=== PATIENT | female | born 1985 | race Caucasian/White ===

== ENCOUNTER → 2018-09-08 08:57 | Outpatient (CLI) | payer OTHER, SELFPAY ==
[2018-08-28 09:06] VITALS: BMI 24.3
[2018-09-08 10:24] LABS: Ferritin 85 ng/mL (8-252); Iron Binding Capacity,Total 330 ug/dL (250-450)
[2018-09-09 12:16] LABS: Transferrin 258 mg/dL (200-370)
== END ==
PROVIDERS: Nurse Practitioner Women's Health; Referring Provider Obstetrics & Gynecology; Visit Provider Obstetrics & Gynecology
DX: D56.3 Thalassemia minor (principal)
CPT/HCPCS: 36415; 82728; 83550; 84466; 87086; 87088

== ENCOUNTER → 2018-09-30 08:51 | Outpatient (CLI) | payer OTHER, SELFPAY ==
[2018-09-30 08:37] VITALS: BMI 24.3
== END ==
PROVIDERS: Referring Provider Obstetrics & Gynecology; Visit Provider Obstetrics & Gynecology
DX: Z36.9 Encounter for antenatal screening, unspecified (principal)
CPT/HCPCS: 36415

== ENCOUNTER → 2018-12-14 15:31 | Outpatient (CLI) | payer OTHER, SELFPAY ==
[2018-12-14 14:53] VITALS: BMI 27.4
[2018-12-14 16:18] LABS: Absolute Lymphocyte Count 1.56 X10^3/uL (0.83-4.51); Basophil# 0.02 X10^3/uL; Basophil% 0.2 % (0-1); Eosinophil# 0.26 X10^3/uL; Eosinophils% 2.5 % (0-5); Hematocrit 29.5 % (37-47); Hemoglobin 9.1 g/dL (12.0-15.0); Lymphocyte # 1.56 X10^3/ul (4.0); Lymphocyte % 15.1 % (19-41); Mean Corp Hgb Conc 30.8 g/dL (32-36); Mean Corpuscular Hgb 20.3 pg (27.0-32.0); Mean Corpuscular Volume 65.7 fL (81-99); Mean Platelet Vol. 10.1 fl (6.2-12.0); Monocyte# 0.46 X10^3/uL; Monocyte% 4.4 % (0-10); NRBC Flagged by Analyzer 0.2 % (0-5); Neutrophil # 7.97 X10^3/uL (2.7-7.7); Neutrophil % 76.9 % (47-70); Platelet Count 262 K/mm3 (150-450); RBC Distribution Width CV 14.4 % (11.6-14.6); RBC Distribution Width SD 33.3 fl (35.1-43.9); Red Blood Count 4.49 M/mm3 (4.2-5.4); White Blood Count 10.4 K/mm3 (4.4-11.0)
[2018-12-14 16:38] LABS: Glucose Challenge Gest 1H 50g 84 mg/dL (70-140)
== END ==
PROVIDERS: Referring Provider Obstetrics & Gynecology; Visit Provider Obstetrics & Gynecology
DX: Z34.92 Encounter for supervision of normal pregnancy, unspecified, second trimester (principal); Z3A.27 27 weeks gestation of pregnancy
CPT/HCPCS: 36415; 82950; 85025

== ENCOUNTER → 2018-12-18 12:33 | Outpatient (CLI) | payer OTHER, SELFPAY ==
[2018-12-14 14:53] VITALS: BMI 27.4
[2018-12-18 14:19] LABS: Ferritin 32 ng/mL (8-252); Iron Binding Capacity,Total 428 ug/dL (250-450)
[2018-12-21 13:06] LABS: Transferrin 331 mg/dL (200-370)
== END ==
PROVIDERS: Referring Provider Obstetrics & Gynecology; Visit Provider Obstetrics & Gynecology
DX: O99.019 Anemia complicating pregnancy, unspecified trimester (principal)
CPT/HCPCS: 36415; 82728; 83550; 84466

== ENCOUNTER 2019-01-02 16:55 | Outpatient (CLI) | payer OTHER, SELFPAY ==
[2018-12-14 14:53] VITALS: BMI 27.4
[2019-01-02 17:05] VITALS: BMI 26.9
[2019-01-02 17:29] LABS: ROM Internal Control Test YES-OK TO RESULT pt. (Internal QC); ROM Patient Test POSITIVE (Negative)
[2019-01-02] MEDS: Lactated Ringers 1,000 ML 15 ML IV (17:54)
[2019-01-02 17:59] LABS: Absolute Lymphocyte Count 1.92 X10^3/uL (0.83-4.51); Absolute Neutrophil Count 7.7 X10^3/uL (2.0-7.7); Basophil# 0.03 X10^3/uL; Basophil% 0.3 % (0-1); Eosinophil# 0.32 X10^3/uL; Hematocrit 30.8 % (37-47); Hemoglobin 9.6 g/dL (12.0-15.0); Lymphocyte # 1.92 X10^3/ul (4.0); Lymphocyte % 17.9 % (19-41); Mean Corp Hgb Conc 31.2 g/dL (32-36); Mean Corpuscular Hgb 20.2 pg (27.0-32.0); Mean Corpuscular Volume 64.7 fL (81-99); Mean Platelet Vol. 10.2 fl (6.2-12.0); Monocyte# 0.66 X10^3/uL; Monocyte% 6.2 % (0-10); NRBC Flagged by Analyzer 0 % (0-5); Neutrophil # 7.72 X10^3/uL (2.7-7.7); Platelet Count 267 K/mm3 (150-450); RBC Distribution Width CV 14.2 % (11.6-14.6); RBC Distribution Width SD 31.9 fl (35.1-43.9); Red Blood Count 4.76 M/mm3 (4.2-5.4); White Blood Count 10.7 K/mm3 (4.4-11.0)
[2019-01-02] MEDS: Betamethasone/Betamethasone 30 MG/5 ML Vial 12 MG IM (18:07)
[2019-01-02 18:15] LABS: Mucous, Urine 0 SEEN /hpf (<or=2+)
[2019-01-02 18:16] LABS: Color, Urine Yellow (Yellow); Glucose, Dipstick Normal (Normal); Ketone-Dipstick Negative (Negative); Leukocyte Esterase-Dipstick Negative /ul (Negative); Nitrite-Dipstick Negative (Negative); Occult Blood-Urine 25 /ul (Negative); Protein-Dipstick 30 mg/dl (Negative); Urine Bilirubin Dipstick Negative (Negative); Urine Clarity Cloudy (Clear); Urine Urobilinogen Normal (Normal); Urine pH 6.5 (5.0 - 8.0)
[2019-01-02] MEDS: Magnesium Sulfate 4gm/100mL 6 GM/150 ML IV.SOLN. IV (18:31)
[2019-01-02 18:35] LABS: Red Blood Cells-Urine 0-5 SEEN /hpf (0-5); Squamous Epithelial Cells - UA 10-25 SEEN /hpf (5-10); White Blood Cells 0-5 SEEN /hpf (0-5)
[2019-01-02 18:36] LABS: Bacteria 2+ /hpf (None Seen)
[2019-01-02 18:44] LABS: Fetal Fibronectin POSITIVE
[2019-01-02] MEDS: Magnesium Sulfate 20 GM/500 ML BAG IV (19:00)
--- NOTE | 2019-01-02 19:15 | NURSING ---
Report given to Estela Elizondo RN at [facility]. Accepting physician is Dr. Rainey.
[2019-01-02 19:20] LABS: Group B Strep DNA By PCR Negative (Negative); Internal Control PASS; Probe Check PASS; Specimen Processing Control PASS
[2019-01-02 19:52] LABS: Chlamydia Trachomatis by PCR Negative (Negative); Neisserai gonorrhoeae by PCR Negative (Negative); Probe Check PASS; Sample Adequacy Control PASS; Specimen Processing Control PASS
--- NOTE | 2019-01-09 00:55 | OB.TRI.PN_ITS ---
Progress Notes Date of Service: 01/02/19 Progress Note: Patient presents for triage evaluation secondary to clear loss of fluid possible PPROM. Patient states that she has had increased discharge throughout the week and it increased significantly today while she was at the childbirth class. ROM plus was sent and it was positive as well as a fibronectin and bedside SUZANNE showed minimal fluid in breech presentation. She denies any contractions FHT: 140 Moderate variability reactive no decelerations category I tracing [place]: no Regular contractions Assessment and plan: P PROM reactive NST, reassuring maternal and status plan transport to tertiary care facility due to early gestational age and prematurity. See problem list details for additional plan information. Laboratory Studies: Laboratory Tests 01/02/19 01/02/19 01/02/19 Range/Units 18:08 18:08 18:05 WBC (4.4-11.0) K/mm3 RBC (4.2-5.4) M/mm3 Hgb (12.0-15.0) g/dL Hct (37-47) % MCV (81-99) fL MCH (27.0-32.0) pg MCHC (32-36) g/dL RDW Std Deviation (35.1-43.9) fl RDW Coeff of Angel (11.6-14.6) % Plt Count (150-450) K/mm3 MPV (6.2-12.0) fl Immature Gran % (Auto) (0.0-0.9) % Neut % (Auto) (47-70) % Lymph % (Auto) (19-41) % [place] % (Auto) (0-10) % Eos % (Auto) (0-5) % Baso % (Auto) (0-1) % Absolute Neuts (auto) (2.0-7.7) X10^3/uL Absolute Lymphs (auto) (0.83-4.51) X10^3/uL Nucleated RBC % (0-5) % Urine Color (Yellow) Urine Clarity (Clear) Urine pH (5.0 - 8.0) Ur Specific [place] (1.002-1.030) Urine Protein (Negative) mg/dl Urine Glucose (UA) (Normal) mg/dl Urine Ketones (Negative) mg/dl Urine Occult Blood (Negative) /ul Urine Nitrite (Negative) Urine Bilirubin (Negative) mg/dL Urine Urobilinogen (Normal) mg/dl Ur Leukocyte Esterase (Negative) /ul Urine RBC (0-5) /hpf Urine WBC (0-5) /hpf Ur Squamous Epith Cells (5-10) /hpf Urine Bacteria (None Seen) /hpf Urine Mucus (<or=2+) /hpf Vag Amniotic Fld Detect (Negative) Chlam trachomat DNA PCR Negative (Negative) N.gonorrhoeae DNA (PCR) Negative (Negative) Group B Strep DNA Negative (Negative) Fibronectin POSITIVE H Specimen Comment Not Reportable Blood Type Antibody Screen 01/02/19 01/02/19 01/02/19 Range/Units 17:53 17:50 17:13 WBC 10.7 (4.4-11.0) K/mm3 RBC 4.76 (4.2-5.4) M/mm3 Hgb 9.6 L (12.0-15.0) g/dL Hct 30.8 L (37-47) % MCV 64.7 L (81-99) fL MCH 20.2 L (27.0-32.0) pg MCHC 31.2 L (32-36) g/dL RDW Std Deviation 31.9 L (35.1-43.9) fl RDW Coeff of Angel 14.2 (11.6-14.6) % Plt Count 267 (150-450) K/mm3 MPV 10.2 (6.2-12.0) fl Immature Gran % (Auto) 0.600 (0.0-0.9) % Neut % (Auto) 72.0 H (47-70) % Lymph % (Auto) 17.9 L (19-41) % [place] % (Auto) 6.2 (0-10) % Eos % (Auto) 3.0 (0-5) % Baso % (Auto) 0.3 (0-1) % Absolute Neuts (auto) 7.7 (2.0-7.7) X10^3/uL Absolute Lymphs (auto) 1.92 (0.83-4.51) X10^3/uL Nucleated RBC % 0 (0-5) % Urine Color (Yellow) Urine Clarity (Clear) Urine pH (5.0 - 8.0) Ur Specific [place] (1.002-1.030) Urine Protein (Negative) mg/dl Urine Glucose (UA) (Normal) mg/dl Urine Ketones (Negative) mg/dl Urine Occult Blood (Negative) /ul Urine Nitrite (Negative) Urine Bilirubin (Negative) mg/dL Urine Urobilinogen (Normal) mg/dl Ur Leukocyte Esterase (Negative) /ul Urine RBC (0-5) /hpf Urine WBC (0-5) /hpf Ur Squamous Epith Cells (5-10) /hpf Urine Bacteria (None Seen) /hpf Urine Mucus (<or=2+) /hpf Vag Amniotic Fld Detect POSITIVE H (Negative) Chlam trachomat DNA PCR (Negative) N.gonorrhoeae DNA (PCR) (Negative) Group B Strep DNA (Negative) Fibronectin Specimen Comment Blood Type O POSITIVE Antibody Screen NEGATIVE 01/02/19 Range/Units 08:05 WBC (4.4-11.0) K/mm3 RBC (4.2-5.4) M/mm3 Hgb (12.0-15.0) g/dL Hct (37-47) % MCV (81-99) fL MCH (27.0-32.0) pg MCHC (32-36) g/dL RDW Std Deviation (35.1-43.9) fl RDW Coeff of Angel (11.6-14.6) % Plt Count (150-450) K/mm3 MPV (6.2-12.0) fl Immature Gran % (Auto) (0.0-0.9) % Neut % (Auto) (47-70) % Lymph % (Auto) (19-41) % [place] % (Auto) (0-10) % Eos % (Auto) (0-5) % Baso % (Auto) (0-1) % Absolute Neuts (auto) (2.0-7.7) X10^3/uL Absolute Lymphs (auto) (0.83-4.51) X10^3/uL Nucleated RBC % (0-5) % Urine Color Yellow (Yellow) Urine Clarity Cloudy (Clear) Urine pH 6.5 (5.0 - 8.0) Ur Specific [place] 1.010 (1.002-1.030) Urine Protein 30 H (Negative) mg/dl Urine Glucose (UA) Normal (Normal) mg/dl Urine Ketones Negative (Negative) mg/dl Urine Occult Blood 25 H (Negative) /ul Urine Nitrite Negative (Negative) Urine Bilirubin Negative (Negative) mg/dL Urine Urobilinogen Normal (Normal) mg/dl Ur Leukocyte Esterase Negative (Negative) /ul Urine RBC 0-5 SEEN (0-5) /hpf Urine WBC 0-5 SEEN (0-5) /hpf Ur Squamous Epith Cells 10-25 SEEN (5-10) /hpf Urine Bacteria 2+ (None Seen) /hpf Urine Mucus 0 SEEN (<or=2+) /hpf Vag Amniotic Fld Detect (Negative) Chlam trachomat DNA PCR (Negative) N.gonorrhoeae DNA (PCR) (Negative) Group B Strep DNA (Negative) Fibronectin Specimen Comment Blood Type Antibody Screen Multi Select Codes - Urinary/Genital Urinary/Genital CPT Codes: 34779-61 non-stress test Interp
== END 2019-01-02 19:10 | disposition short-term general hospital (02) ==
LOC: WPOUT 16:58 → OBT 16:58
PROVIDERS: Referring Provider Obstetrics & Gynecology; Visit Provider Obstetrics & Gynecology
DX: O42.90 Premature rupture of membranes, unspecified as to length of time between rupture and onset of labor, unspecified weeks of gestation (principal); O32.1XX0 Maternal care for breech presentation, not applicable or unspecified; Z3A.00 Weeks of gestation of pregnancy not specified
CPT/HCPCS: 96365; 96367 ×2; 36415; 59025; 59050; 76815; 81001; 82731; 84112; 85025; 86850; 86900; 86901; 87081; 87086; 87088; 87491; 87591; 87653; 94760; 96372; 99218; J7120; G0378; J0702

== ENCOUNTER 2019-01-26 23:06 | Emergency (ER) | payer OTHER, SELFPAY ==
[2019-01-26 23:07] VITALS: BP 116/77; PULSE 88; RESP 24; TEMP 36.1; O2SAT 100; BMI 25.5
--- NOTE | 2019-01-27 00:35 | ED.DCSUM_ITS ---
History of Present Illness Chief Complaint: Anxiety Informant: Patient, Significant Other Onset: Today Context: Sudden Onset Narrative: Patient is a 33-year-old female currently 3 weeks presenting with anxiety attack. Patient had her child at 30 weeks secondary to PPROM. She had a . Her child is in the NICU at [facility]. She was driving home from [facility] with her when she started to feel very anxious, short of breath and was breathing quickly. Patient states she had a sensation of doom. states she has had similar episodes but not nearly as severe in the past. Because of the intensity of her symptoms patient wanted to be evaluated at the ER. She states her symptoms have since resolved and she feels better. She saw her OYSTER CULTIVATOR yesterday in the office and was told ever ything looked fine. Patient is pumping. She denies any other complaints at this time. Past Medical History - Allergies and Home Meds Allergies/Adverse Reactions: Allergies No Known Allergies Allergy (Verified 01/26/19 23:07) Primary Care Physician: Care Physician,No Primary [Primary Care Provider] - Past Medical History: None Surgical History: - - Partial thyroidectomy, Smoking Status: Never smoker Review of Systems General: Denies: Chills, Fever, Sweats Eyes: Denies: Visual changes - bilaterally, Diplopia ENT: Denies: Rhinorrhea, Sore throat Cardiovascular: Denies: Chest pain, Palpitations Respiratory: Reports: Dyspnea. Denies: Cough, Dyspnea on exertion Gastrointestinal: Denies: Abdominal pain, Nausea, Vomiting, Diarrhea, Melena, Hematochezia Genitourinary: Denies: Dysuria, Hematuria, Frequency Musculoskeletal: Denies: Back pain, Extremity Pain Skin: Denies: Rash, Wounds Neurological: Denies: Headache, Weakness, Numbness Psych: Reports: Anxiety. Denies: Depression, Suicidal thoughts, Suicidal ideations Physical Exam Vital Signs/Narrative: Vital Signs Temp Pulse Resp BP Pulse Ox 01/26/19 23:07 97.0 F L 88 24 H 116/77 100 Inital Vital Signs reviewed: Yes General: Well nourished, Well developed, No Acute Distress Head: Normocephalic, Atraumatic Eyes: Perrl, EOMI ENT: Moist mucous membranes, No rhinorrhea Neck: Supple, Nontender Cardiovascular: Regular rate, Regular rhythm, No murmurs Respiratory: No distress, CTA bilaterally, Chest nontender Abdomen: Soft, Nontender, Nondistended, Normal bowel sounds Back: Nontender, Normal Inspection Extremities: Nontender, No edema Skin: Normal color, No rash Neurological: Alert, Oriented x3, Cranial nerves II-XII grossly intact, Normal Strength, Normal Sensation Psychological: Normal affect, Normal Mood. Negative for: Depressed, Tearful, Agitated Diagnostic/Tx/Re-eval - Medical Decision Making Patient is evaluated after which she describes as a panic attack. She appears nontoxic in no acute distress. She is hemodynamically stable. She is asymptomatic on my evaluation. Patient has had significant stressors in her life. Discussed using Atarax/hydroxyzine for her symptoms but we elected not to because patient is currently pumping and working on her milk supply. Patient is counseled on the signs and symptoms of depression. She is encouraged to follow-up with her OYSTER CULTIVATOR for discussion of her mental status. She does feel safe at home. Her will be with her. Patient is counseled on signs and symptoms requiring return to the emergency room. Patient verbalizes agreement and understand this plan. Patient discharged home in stable and improved condition. ED Disposition - Plan for ED Patient: Disposition: Home or Assisted Living Diagnosis: Panic attack as reaction to stress Instructions: Panic Attack Referrals: Care Physician,No Primary [Primary Care Provider] - Additional Instructions: Please call your OYSTER CULTIVATOR tomorrow to arrange follow-up. Likely this was a panic attack. If you have worsening symptoms of anxiety or develop symptoms of depression you can always return to the emergency room.
== END 2019-01-27 00:57 | disposition home or self-care (01) ==
PROVIDERS: Emergency Provider Emergency Medicine
DX: F43.0 Acute stress reaction (principal)
CPT/HCPCS: 99282

== ENCOUNTER 2019-01-31 00:36 | Emergency (ER) | payer OTHER, SELFPAY ==
[2019-01-31 00:37] VITALS: BP 136/84; PULSE 62; RESP 18; TEMP 36.4; O2SAT 98; BMI 26.1
--- NOTE | 2019-01-31 00:52 | EKG12_ITS ---
Test Reason : [facility] [place] [facility] [place] Blood Pressure : / mmHG Vent. Rate : 053 BPM Atrial Rate : 053 BPM P-R Int : 142 ms QRS Dur : 082 ms QT Int : 466 ms P-R-T Axes : 073 072 048 degrees QTc Int : 437 ms Sinus bradycardia Otherwise normal ECG Confirmed by KISHA BORGES, SPENCER ([id number]), make up editor LIGIA MARIN ([id number]) on 02/02/2019 10:06:27 AM Referred By: MARCELLO Confirmed By:SPENCER BEARD MD
--- NOTE | 2019-01-31 00:53 | ED.VIS.GEN ---
History of Present Illness Chief Complaint: Anxiety Narrative: Patient is a 33-year-old female who presents with depression. She is and her baby is in the NICU at [facility]. This very stressful. She complains of depression and anxiety. She states she has thoughts of harming herself but no specific plan. She does feel safe at home. She does not feel she would act on these thoughts. When asked if she had any thoughts of harming anyone else she stated no. However notes that she had written a note asking him not to leave her alone baby. She was started on an antidepressant and anxiolytic. She is prescribed sertraline and hydroxyzine. She is scheduled to start therapy on Friday. was given a card for a crisis number which [facility] and were advised to be evaluated here in the emergency department. Past Medical History - Allergies and Home Meds Allergies/Adverse Reactions: Allergies No Known Allergies Allergy (Verified 01/31/19 00:36) Primary Care Physician: Care Physician,No Primary [Primary Care Provider] - Past Medical History: - - depression Surgical History: - - Partial thyroidectomy, Smoking Status: Never smoker Review of Systems All systems negative except as indicated General: Denies: Fever Eyes: Denies: Visual changes - bilaterally ENT: Denies: Bilateral ear pain Cardiovascular: Denies: Chest pain Respiratory: Denies: Dyspnea Gastrointestinal: Denies: Abdominal pain, Nausea, Vomiting, Diarrhea Skin: Denies: Rash Neurological: Denies: Headache Psych: Reports: Depression, Suicidal thoughts Physical Exam Vital Signs/Narrative: Vital Signs Temp Pulse Resp BP Pulse Ox 01/31/19 00:37 97.6 F L 62 18 136/84 H 98 Inital Vital Signs reviewed: Yes General: Well nourished Head: Normocephalic Eyes: EOMI ENT: Moist mucous membranes Neck: Supple Cardiovascular: Regular rate, Regular rhythm Respiratory: No distress, CTA bilaterally Abdomen: Soft, Nontender Skin: Normal color Neurological: Alert Psychological: Depressed, - - Patient appears depressed with a blunt affect Diagnostic/Tx/Re-eval Laboratory Results 01/31/19 01/31/19 01/31/19 01:00 01:00 01:00 WBC 9.7 RBC 5.25 Hgb 10.4 L Hct 33.8 L MCV 64.4 L MCH 19.8 L MCHC 30.8 L RDW Std Deviation 30.7 L RDW Coeff of Angel 13.7 Plt Count 302 MPV 9.7 Immature Gran % (Auto) 0.400 Neut % (Auto) 58.3 Lymph % (Auto) 31.5 [place] % (Auto) 6.5 Eos % (Auto) 2.9 Baso % (Auto) 0.4 Absolute Neuts (auto) 5.6 Absolute Lymphs (auto) 3.05 Nucleated RBC % 0 Sodium 136 Potassium 3.4 L Chloride 103 Carbon Dioxide 24.0 Anion Gap 9 BUN 7 Creatinine 0.53 L Estim Creat Clear Calc 130.37 Est GFR (MDRD) Af Amer 169 Est GFR (MDRD) Non-Af 140 BUN/Creatinine Ratio 13.1 Glucose 109 H Calcium 8.8 Serum , Qual Urine Opiates Screen Urine Methadone Screen Ur Barbiturates Screen Ur Phencyclidine Scrn Ur Amphetamines Screen U Methamphetamin-MDMA U Benzodiazepines Scrn Urine Cocaine Screen U Cannabinoids Screen Ur Drug Screen Comment Ethyl Alcohol < 3.0 01/31/19 01/31/19 01:00 01:15 WBC RBC Hgb Hct MCV MCH MCHC RDW Std Deviation RDW Coeff of Angel Plt Count MPV Immature Gran % (Auto) Neut % (Auto) Lymph % (Auto) [place] % (Auto) Eos % (Auto) Baso % (Auto) Absolute Neuts (auto) Absolute Lymphs (auto) Nucleated RBC % Sodium Potassium Chloride Carbon Dioxide Anion Gap BUN Creatinine Estim Creat Clear Calc Est GFR (MDRD) Af Amer Est GFR (MDRD) Non-Af BUN/Creatinine Ratio Glucose Calcium Serum , Qual NEGATIVE Urine Opiates Screen NEGATIVE Urine Methadone Screen NEGATIVE Ur Barbiturates Screen NEGATIVE Ur Phencyclidine Scrn NEGATIVE Ur Amphetamines Screen NEGATIVE U Methamphetamin-MDMA NEGATIVE U Benzodiazepines Scrn NEGATIVE Urine Cocaine Screen NEGATIVE U Cannabinoids Screen NEGATIVE Ur Drug Screen Comment Ethyl Alcohol - Medical Decision Making Patient underwent medical clearance evaluation as above. Patient was evaluated by crisis here. Crisis had an extensive discussion with the patient and family. The patient has a lot of fears as she blames herself for the complications around her child premature delivery. She has fears about doing things correctly once the child is home. This is what she was referencing when she had stated she was worried she was going to hurt the baby. She has no thoughts of direct intent to harm. Patient has no history of prior depression/suicidal ideation or attempts. She is scheduled to start the intensive outpatient treatment program on Friday. Therefore we do feel she can safely be discharged to follow-up as an outpatient but understands that she can contact crisis or return here to the emergency department should she need to. Patient discharged to follow-up closely as an outpatient. ED Disposition - Plan for ED Patient: Disposition: Home or Assisted Living Diagnosis: Post depression Instructions: Understanding Depression Referrals: Care Physician,No Primary [Primary Care Provider] - Counseling,Center [GROUP OF PHYSICIANS] -
--- NOTE | 2019-01-31 00:57 | ED.RN ---
DR. ARMENDARIZ INFORMED OF PT DESIRE TO HARM SELF. PT STATES NO TO ALL OTHER SI SCREENING QUESTIONS. LOW RISK AT THIS TIME. NO NEED FOR SITTER PER DR. ARMENDARIZ.
[2019-01-31 01:14] LABS: Absolute Lymphocyte Count 3.05 X10^3/uL (0.83-4.51); Absolute Neutrophil Count 5.6 X10^3/uL (2.0-7.7); Basophil# 0.04 X10^3/uL; Basophil% 0.4 % (0-1); Eosinophil# 0.28 X10^3/uL; Eosinophils% 2.9 % (0-5); Hematocrit 33.8 % (37-47); Hemoglobin 10.4 g/dL (12.0-15.0); Lymphocyte # 3.05 X10^3/ul (4.0); Lymphocyte % 31.5 % (19-41); Mean Corp Hgb Conc 30.8 g/dL (32-36); Mean Corpuscular Hgb 19.8 pg (27.0-32.0); Mean Corpuscular Volume 64.4 fL (81-99); Mean Platelet Vol. 9.7 fl (6.2-12.0); Monocyte# 0.63 X10^3/uL; Monocyte% 6.5 % (0-10); NRBC Flagged by Analyzer 0 % (0-5); Neutrophil # 5.63 X10^3/uL (2.7-7.7); Neutrophil % 58.3 % (47-70); Platelet Count 302 K/mm3 (150-450); RBC Distribution Width CV 13.7 % (11.6-14.6); RBC Distribution Width SD 30.7 fl (35.1-43.9); Red Blood Count 5.25 M/mm3 (4.2-5.4); White Blood Count 9.7 K/mm3 (4.4-11.0)
[2019-01-31 01:35] LABS: Alcohol, Blood (Medical)-Serum < 3.0 mg/dL
[2019-01-31 01:36] LABS: Anion Gap 9 (5-15); BUN 7 mg/dL (7-18); BUN/Creat Ratio 13.1 RATIO (10-20); Calcium,Total 8.8 mg/dL (8.5-10.1); Chloride 103 mmol/L (98-107); Creatinine, Serum 0.53 mg/dL (0.55-1.02); EST Glomerular Filtration Rate 140 mL/min (>60); Est Glom Filt Rate - Afr Amer 169 mL/min (>60); Estimated Creatinine Clearance 130.37 ml/min; Glucose 109 mg/dL (74-106); Potassium 3.4 mmol/L (3.5-5.1); Sodium Level 136 mmol/L (136-145)
[2019-01-31 01:39] LABS: Internal QC Validated? YES +Cl - CLEAR BKGD; Pregnancy, Serum, hCG Quali. NEGATIVE Negative
[2019-01-31 01:50] LABS: Amphetamine Urine VISTA NEGATIVE (<1000 ng/mL); Barbiturate Urine VISTA NEGATIVE (< 200 ng/mL); Benzodiazepine Urine VISTA NEGATIVE (< 200 ng/mL); Cocaine Urine VISTA NEGATIVE (< 300 ng/mL); Ecstacy Urine VISTA NEGATIVE (< 500 ng/mL); Methadone Urine VISTA NEGATIVE (< 300 ng/mL); PCP Urine VISTA NEGATIVE (< 25 ng/mL); THC Urine VISTA NEGATIVE (< 50 ng/mL); Vista UDS pH Range 6
--- NOTE | 2019-01-31 02:03 | NURSING ---
called crisis at [id number]
[2019-01-31 05:19] VITALS: BP 128/60; PULSE 68; RESP 16; O2SAT 96
== END 2019-01-31 05:20 | disposition home or self-care (01) ==
PROVIDERS: Emergency Provider Emergency Medicine
DX: O99.345 Other mental disorders complicating the puerperium (principal); F53.0 Postpartum depression
CPT/HCPCS: 80048; 80307; 80320; 84703; 85025; 93005; 99282; G0480

== ENCOUNTER → 2019-02-16 17:45 | Outpatient (CLI) | payer OTHER, SELFPAY ==
[2019-02-16 13:03] VITALS: BMI 26.1
[2019-02-19 17:03] LABS: HPV APTIMA, High Risk Negative (Negative)
== END ==
PROVIDERS: Referring Provider Obstetrics & Gynecology; Visit Provider Obstetrics & Gynecology
DX: Z12.4 Encounter for screening for malignant neoplasm of cervix (principal)
CPT/HCPCS: 87624; 88175; G0145